=== PATIENT | female | born 1995 | race Caucasian/White ===

== ENCOUNTER 2022-12-25 18:04 | Emergency (ER) | payer MEDICAID ==
[~2022-12-25] VITALS: Ht 165.1 cm; Wt 60.0 kg
[~2022-12-25 18:04] MED LIST: CHLO25CA10 PO; NICO-731 TOP
[2022-12-25 18:09] VITALS: BP 123/74
[2022-12-25] MEDS ORDERED: LORazepam 1 MG tablet PO ONE (18:20)
[2022-12-25] MEDS ORDERED: ondansetron 4mg rapidly disintigrating tab PO ONE (18:20)
[2022-12-25] MEDS ORDERED: ONDA4TAB12 PO (18:32)
[2022-12-25] MEDS ORDERED: LORA-269 PO (18:32)
[2022-12-25] MEDS ORDERED: GABA300C PO (18:32)
== END 2022-12-25 18:41 | disposition home or self-care (01) ==
LOC: ER 18:04
DX: F10.20 Alcohol dependence, uncomplicated (principal); Y90.9 Presence of alcohol in blood, level not specified; R45.1 Restlessness and agitation; Z79.899 Other long term (current) drug therapy
CPT/HCPCS: 99283

== ENCOUNTER 2025-01-03 13:48 | Emergency (ER) | payer MEDICAID ==
[~2025-01-03] VITALS: Ht 165.1 cm; Wt 90.7 kg
[~2025-01-03 13:48] MED LIST changes: +GABA300C PO; +LORA-269 PO; +ONDA-243 PO
[2025-01-03 14:34] LABS: BASOPHILS # (AUTO) 0.1 X10'3 (0-0.2); BASOPHILS % (AUTO) 1.2 % (0-1); EOSINOPHILS # (AUTO) 0.2 X10'3 (0-0.9); HEMATOCRIT 40.6 % (35.0-45.0); HEMOGLOBIN 13.4 g/dl (12.0-16.0); LYMPHOCYTES # (AUTO) 2.1 X10'3 (1.1-4.8); LYMPHOCYTES % (AUTO) 40.7 % (21-51); MEAN CORPUSCULAR HEMOGLOBIN 29.7 PG (27.0-31.0); MEAN CORPUSCULAR HGB CONC 32.9 g/dL (33.0-36.5); MEAN CORPUSCULAR VOLUME 90.2 FL (78-98); MEAN PLATELET VOLUME 7.1 FL (7.4-10.4); MONOCYTES # (AUTO) 0.5 X10'3 (0-0.9); NEUTROPHILS # (AUTO) 2.3 X10'3 (1.8-7.7); NEUTROPHILS % (AUTO) 44.1 % (42-75); PLATELET COUNT 329 X10'3 (140-440); RED BLOOD COUNT 4.51 X10'6 (4.20-5.60); RED CELL DISTRIBUTION WIDTH 14.4 % (11.5-14.5); WHITE BLOOD COUNT 5.1 X10'3 (4.5-11.0)
[2025-01-03 14:46] LABS: URINE HCG NEGATIVE (NEG)
[2025-01-03 14:48] LABS: BILIRUBIN,URINE NEGATIVE (Neg); CLARITY,URINE CLEAR (Clear); COLOR,URINE STRAW (Yellow); GLUCOSE, URINE NEGATIVE (Neg); KETONES,URINE NEGATIVE (Neg); LEUKOCYTE ESTERASE ,URINE NEGATIVE (Neg); NITRITES, URINE NEGATIVE (Neg); OCCULT BLOOD,URINE MODERATE (Neg); PROTEIN,URINE NEGATIVE (Neg); UROBILINOGEN,URINE 0.2 E.U/dL (0.2-1.0)
[2025-01-03 14:49] LABS: UA COLLECTION TYPE NON-SPECIFIED
[2025-01-03 14:52] LABS: ALANINE AMINOTRANSFERASE 86 U/L (12-78); ALBUMIN 3.8 G/DL (3.4-5.0); ALBUMIN/GLOBULIN RATIO 0.8 (1.1-1.5); ALKALINE PHOSPHATASE 83 IU/L (46-116); ANION GAP 10 (8-16); ASPARTATE AMINO TRANSFERASE 68 U/L (10-37); BILIRUBIN,TOTAL 0.4 MG/DL (0.1-1.0); BLOOD UREA NITROGEN 6 MG/DL (7-18); BUN/CREATININE RATIO 7.2 (10.0-20.0); CALCIUM 8.5 MG/DL (8.5-10.1); CHLORIDE 102 MMOL/L (99-107); CREATININE 0.83 MG/DL (0.40-0.90); GLUCOSE 87 MG/DL (70-104); LIPASE 48 U/L (16-77); POTASSIUM 3.8 MMOL/L (3.5-5.1); SODIUM 138 MMOL/L (135-145); TOTAL CARBON DIOXIDE 26.1 MMOL/L (24-32); TOTAL PROTEIN 8.5 G/DL (6.4-8.2); eCRCL 90 ML/MIN; eGFR 81 ML/MIN
[2025-01-03 14:57] LABS: BACTERIA,URINE 4+ /HPF (Neg); MUCUS STRANDS FEW /LPF (Neg); RENAL CELLS, URINE FEW /HPF; SQUAMOUS EPITHELIAL CELL,UR MODERATE /LPF (FEW); TRANSITIONAL EPI CELLS,URINE FEW /HPF; WBC,URINE 0-4 /HPF (0-4)
--- NOTE | 2025-01-03 14:57 | Physician Documentation ---
History of Present Illness ~ Chief Complaint: ETOH Stated Complaint: ETOH Time Seen by MD: 14:59 Primary Medical Doctor: CHARLOTTE HPI 29-year-old female who presents with concerns hallucinations after a three week period of heavy drinking, patient reports that she has been drinking approximately 18 alcoholic beverages daily, patient reports recent nausea vomiting, diarrhea, and urinary incontinence due to heavy drinking. Patient reports last drink was half a beer at approximately 11:00 a.m. today. She stat es that she wants to quit but has been to rehab twice before. After the rehab she states that she was sober for about a year until about 3-4 weeks ago when she started drinking again. The patient was living up in [place] she states that her drinking got bad when she was up there. She recently has moved back down to live with her mother here in [place]. She states that she wants to quit but does not want to go back to rehab. Patient believes that she can detox herself with the help of some medication. Denies any suicidal or homicidal ideations. Tetanus within 5 years?: No Medication Reconciliation Allergies: Coded Allergies: No Known Allergies (Unverified , 10/18/16) Scheduled Gabapentin (Neurontin), 1 CAP PO Q8H Nicotine (Nicotine Patch), 1 PATCH TOP DAILY Scheduled PRN Chlordiazepoxide Hcl (Librium), 25 MG PO TID PRN for alcohol withdrawal Lorazepam (Ativan), 1 TAB PO Q8H PRN for alcohol withdrawal ONDANSETRON ODT 4mg tablet (Ondansetron Odt), 1 TABLET PO Q6H PRN for nausea/vomiting Past Medical History Past Medical History: No Pertinent History Past Surgical History: no surgical history Alcohol Use: Abuse Drug Use: none Physical Exam Vital Signs: Temperature: 98.2, Source: Temporal, Heart Rate: 101, Respiratory Rate: 18, BP: 141/99, Pulse Oximetry: 98, Weight: 90.650 Oxygen Flow Rate: 0 Physical Exam I have reviewed the triage vitals. CONST: Well developed and well nourished. In no acute distress HENT: Head Atraumatic EYES: Pupils are equal, round and reactive to light. Normal conjunctiva NECK: Normal range of motion. Supple. CARDIO: Normal rate and regular rhythm. No murmurs, rubs, or gallops. S1, S2. PULM/CHEST: No respiratory distress. Lungs clear to auscultation. No wheeze ABD: Soft and nontender. Nondistended. Bowel sounds normal. No guarding. : Exam deferred MSK: No edema. No deformity. NEURO: Alert and oriented to person, place and time. Moving all extremities SKIN: Warm and dry. PSYCH: Normal mood and affect. Good eye contact. Progress Results/Orders Results/Orders Orders - YAYO ZAMORA MD Cult Urine + [address] (01/03/25 14:58) Completed Orders - YAYO ZAMORA MD Hcg, Ur Ql (01/03/25 14:02) Cbc/Diff (01/03/25 14:02) BMP (01/03/25 14:02) Lipase (01/03/25 14:02) CMP (01/03/25 14:02) Ua W/Microscopic, Cult If Ind (01/03/25 14:23) Ethanol (01/03/25 14:23) Normal Saline 1000ml (Sodium Chloride 10 (01/03/25 16:15) Ondansetron Inj. (Zofran 4mg/2ml Vial) (01/03/25 16:45) Medications Received in ER Medications (Trade) Dose Ordered Sig/Angelic Route PRN Reason Start Time Stop Time Status Last Admin Dose Admin Sodium Chloride 1,000 ml @ 1,000 mls/hr ONCE ONCE IV 01/03/25 16:15 01/03/25 17:14 DC 01/03/25 17:03 1,000 MLS/HR (Zofran 4mg/2ml vial) 4 mg ONCE ONCE IV 01/03/25 16:45 01/03/25 16:46 DC 01/03/25 17:03 4 MG Vital Signs 01/03/25 01/03/25 01/03/25 13:58 15:09 15:23 Temp 98.2 Pulse 101 88 Resp 18 16 20 B/P (MAP) 141/99 130/88 (102) Pulse Ox 98 95 O2 Flow Rate 0 0 Laboratory Tests Test 01/03/25 14:23 White Blood Count 5.1 Red Blood Count 4.51 Hemoglobin 13.4 Hematocrit 40.6 Mean Corpuscular Volume 90.2 Mean Corpuscular Hemoglobin 29.7 Mean Corpuscular Hemoglobin Concent 32.9 L Red Cell Distribution Width 14.4 Platelet Count 329 Mean Platelet Volume 7.1 L Neutrophils (%) (Auto) 44.1 Lymphocytes (%) (Auto) 40.7 Monocytes (%) (Auto) 10.0 Eosinophils (%) (Auto) 4.0 Basophils (%) (Auto) 1.2 H Neutrophils # (Auto) 2.3 Lymphocytes # (Auto) 2.1 Monocytes # (Auto) 0.5 Eosinophils # (Auto) 0.2 Basophils # (Auto) 0.1 CBC Comment Urine Specimen Description Non-specified Urine Color Straw Urine Clarity Clear Urine pH 6.0 Urine Specific Cameron <=1.005 Urine Protein Negative Urine Glucose (UA) Negative Urine Ketones Negative Urine Occult Blood Moderate H Urine Nitrite Negative Urine Bilirubin Negative Urine Urobilinogen 0.2 Urine Leukocyte Esterase Negative Urine RBC 3-10 Urine WBC 0-4 Urine Squamous Epithelial Cells Moderate Urine Transitional Epithelial Cells Few Urine Renal Cells Few Urine Bacteria 4+ Urine Mucus Few Urine Culture Indicated Indicated Volume Urine Centrifuged 10 ml Urine HCG, Qualitative Negative Urine Comment Sodium Level 138 Potassium Level 3.8 Chloride Level 102 Carbon Dioxide Level 26.1 Anion Gap 10 Blood Urea Nitrogen 6 L Creatinine 0.83 Estimated GFR/1.73 m2 81 BUN/Creatinine Ratio 7.2 L Glucose Level 87 Calcium Level 8.5 Total Bilirubin 0.4 Aspartate Amino Transf (AST/SGOT) 68 H Alanine Aminotransferase (ALT/SGPT) 86 H Alkaline Phosphatase 83 Total Protein 8.5 H Albumin 3.8 Globulin 4.7 H Albumin/Globulin Ratio 0.8 L Lipase 48 Chemistry Comments Ethyl Alcohol Level 347 H Microbiology Date/Time Source Procedure Growth Status 01/03/25 14:58 Urine Nonspecified Urine Culture - Preliminary Culture received. Resulted Medical Decision Making Findings MSE performed in triage and patient returned to ED lobby by nursing staff Departure Disposition: HOME / SELF CARE / HOMELESS Impression: Primary Impression: Alcohol withdrawal syndrome Additional Impressions: Alcohol abuse Alcohol dependence Condition: Improved Discharge Instructions: Alcohol Withdrawal Syndrome Referrals: NO PRIMARY CARE PROVIDER (PCP) Prescriptions Chlordiazepoxide Hcl (Librium) 25 Mg Capsule 25 MG PO DIRECTED, #30 CAP 0 Refills Take 50-100 mg tonight for withdrawal symptoms. Day 2: 50 mg in morning, 50 mg in afternoon, 25 mg before bed Day 3: 25 mg in morning, 25 mg in afternoon, 25 mg before bed Day 4: 25 mg in morning, 25 mg before bed Day 5: 25 mg at bedtime Prov: YAYO ZAMORA MD 01/03/25 ROSELIA LEO Jan 03, 2025 14:57 YAYO ZAMORA MD Jan 03, 2025 16:52
[2025-01-03 15:21] LABS: ETHANOL 347 MG/DL (<10)
[2025-01-03] MEDS: normal saline 1000ml 1,000 ML IV ONE (17:03)
[2025-01-03] MEDS: ondansetron/PF 4mg/2ml inj IV ONE (17:03)
[2025-01-03] MEDS ORDERED: CHLO25CA10 PO (18:16)
[2025-01-03 18:27] VITALS: BP 132/80; PULSE 85; RESP 16; TEMP 98.2; O2SAT 99
== END 2025-01-03 18:29 | disposition home or self-care (01) ==
LOC: ER 13:49
DX: F10.239 Alcohol dependence with withdrawal, unspecified (principal); Z79.899 Other long term (current) drug therapy; Y90.8 Blood alcohol level of 240 mg/100 ml or more
CPT/HCPCS: 36415; 80053; 80320; 81001; 81025; 83690; 85025; 87088; 96361; 96374; 99283; J2405; J7030; 87077; 87186